=== PATIENT | female | born 1990 | race Caucasian/White ===

== ENCOUNTER 2017-11-18 01:20 | Emergency (ER) | END 2017-11-18 02:50 | disposition left against medical advice (07) ==

== ENCOUNTER 2018-02-16 15:00 | Emergency (ER) | END 2018-02-16 18:43 | disposition home or self-care (01) ==

== ENCOUNTER 2018-10-06 16:25 | Emergency (ER) | payer OTHER ==
[~2018-10-06] VITALS: Ht 167.6 cm; Wt 74.2 kg
[~2018-10-06 16:25] MED LIST: CIPR500T4 PO; TYL500 PO
[2018-10-06 16:44] VITALS: BP 167/59; PULSE 73; RESP 18; Ht 167.6 cm; Wt 74.2 kg
[2018-10-06] MEDS ORDERED: ONDANSETRON (ODT) 4 MG TAB ODT STA (17:43)
--- NOTE | 2018-10-06 17:58 | ERD ---
ER Documentation Chief Complaint Chief Complaint COLD SYMPTOMS X YESTERDAY HPI 28-year-old female presenting with cold-like symptoms since yesterday. She reports a dry cough, sore throat, headache, nausea, and hot sweats. She denies any abdominal pain or any vomiting or diarrhea. She states that she was near a sick contact recently and thinks that she may have gotten sick from this contact. She reports that she has tried epha-efy-zcdxlao sore throat relief with very mild relief of her symptoms. She denies any fever recorded at home. She reports that she has a decreased appetite since yesterday as well. ROS All systems reviewed and are negative except as per history of present illness. Medications Home Meds Active Scripts Benzonatate* (Tessalon Perle*) 100 Mg Capsule, 100 MG PO Q8H PRN for COUGH, #20 CAP Prov:GOYO CLANCY PA-C 10/06/18 Ibuprofen* (Ibuprofen*) 400 Mg Tablet, 400 MG PO Q6H PRN for PAIN, #30 TAB Prov:GOYO CLANCY PA-C 10/06/18 Ondansetron (Ondansetron Odt) 4 Mg Tab.rapdis, 4 MG PO Q6H PRN for NAUSEA AND/OR VOMITING, #10 TAB Prov:GOYO CLANCY PA-C 10/06/18 Acetaminophen* (Tylenol*) 500 Mg Tab, 500 MG PO Q4H PRN for ELEVATED TEMPERATURE, #30 TAB Prov:NIA BAXTER DO 02/16/18 Ciprofloxacin Hcl* (Ciprofloxacin Hcl*) 500 Mg Tablet, 500 MG PO BID for 7 Days, #14 TAB Prov:NIA BAXTER DO 02/16/18 Allergies Allergies: Coded Allergies: No Known Drug Allergies (Verified Allergy, Unknown, 11/18/17) PMhx/Soc Medical and Surgical Hx: pt denies Medical Hx, pt denies Surgical Hx FmHx Family History: No diabetes, No coronary disease, No other Physical Exam Vitals Vital Signs Date Temp Pulse Resp B/P (MAP) Pulse Ox O2 O2 Flow FiO2 Time Delivery Rate 10/06/18 98.7 19:58 10/06/18 98.4 73 18 167/59 97 16:44 (95) Physical Exam Const: No acute distress, coughing throughout exam Head: Atraumatic Eyes: Normal Conjunctiva, PERRLA ENT: Normal External Ears; Mouth: pink and moist, nonexudative Resp: Clear to auscultation bilaterally Cardio: Regular rate and rhythm Abd: Soft, non tender, non distended. Normal bowel sounds Skin: No petechiae or rashes Ext: No cyanosis, or edema Neur: Awake and alert Psych: Normal Mood and Affect Results 24 hrs Current Medications Medications Dose Sig/Joel Start Time Status Last (Trade) Ordered Route PRN Stop Time Admin Dose Reason Admin Ondansetron 4 mg ONCE STAT 10/06/18 DC 10/06/18 HCl (Zofran ODT 17:43 10/06/18 17:50 Odt) 17:45 Ibuprofen 600 mg ONCE ONCE 10/06/18 DC 10/06/18 (Motrin) PO 18:00 10/06/18 17:50 18:01 Procedures/MDM ED COURSE: The patient was stable throughout ED course. I kept the patient and/or family informed of laboratory and diagnostic imaging results throughout the ED course. PROCEDURES: Rapid strep negative MEDICATIONS GIVEN: Zofran, ibuprofen Patient tolerated medication well with no adverse reactions. Patient reported i mprovement in pain. MEDICAL DECISION MAKING: Patient is a 28-year-old female presenting with cold-like symptoms yesterday. She reports that she was in contact with someone else that was previously sick and believes that she might have gotten what the other person had. She is continuously coughing throughout exam and feels nauseated but her nausea was resolved with some Zofran given in the ED. rapid strep was negative in the ED. This patient presents to the ED with symptoms consistent with a viral acute upper respiratory infection. Patient's physical exam includes lungs which were clear to auscultation and a normal pulse oximetry. There is a low suspicion for pneumonia, pneumothorax, mononucleosis, pulmonary embolism, epiglottitis, otitis media, otitis externa, viral/strep pharyngitis, sinusitis, myocarditis, pericarditis, endocarditis, peritonsillar abscess, mastoiditis, retropharyngeal abscess, meningitis, sepsis, acute abdomen or other emergent conditions. Fluids, rest, and symptomatic treatment are recommended for the management of patient's symptoms. Vital signs were reviewed. Patient is afebrile. Patient was not hypoxic. Patient was hemodynamically stable. PRESCRIPTION: Zofran and Motrin, Tessalon Perles DISCHARGE: At this time, patient is stable for discharge and outpatient management. I have instructed the patient to follow-up with his/her primary care physician in 1-2 days. I have discussed with the patient the possibility of needing to see a specialist for further workup and imaging studies if symptoms persist. I have instructed the patient to promptly return to the ER for any new or worsening symptoms including increased pain, fever, nausea, vomiting, weakness or LOC. The patient and/or family expressed understanding of and agreement with this plan. All questions were answered. Home care instructions were provided. Disclaimer: Inadvertent spelling and grammatical errors are likely due to EHR/dictation software use and do not reflect on the overall quality of patient care. Also, please note that the electronic time recorded on this note does not necessarily reflect the actual time of the patient encounter. Departure Condition: Fair Patient Instructions: Adult Self-Care for Colds Referrals: [facility] Additional Instructions: Call your primary care doctor TOMORROW for an appointment during the next 1-2 days.See the doctor sooner or return here if your condition worsens before your appointment time. GOYO CLANCY PA-C Oct 06, 2018 17:58
[2018-10-06] MEDS ORDERED: IBUPROFEN 600 MG TAB PO ONE (18:00)
[2018-10-06] MEDS ORDERED: ONDA4TAB14 PO (18:57)
[2018-10-06] MEDS ORDERED: IBUP-1541 PO (18:57)
[2018-10-06] MEDS ORDERED: BENZ-6 PO (18:58)
== END 2018-10-06 19:59 | disposition home or self-care (01) ==
LOC: FTE 16:25
DX: J06.9 Acute upper respiratory infection, unspecified (principal); R11.0 Nausea
CPT/HCPCS: 87880; Z7502; Z7610; 99283